=== PATIENT | female | born 1960 ===

== ENCOUNTER 2017-04-09 00:37 | Emergency (ER) | payer MEDICAID ==
[2017-04-09 00:38] VITALS: BMI 28.1
[2017-04-09 00:50] VITALS: PULSE 79; RESP 16; TEMP 98.2; O2SAT 100
[2017-04-09 02:11] LABS: BASO % 0.4 % (0.0-2.0); EOS # 0.1 K/uL (0.0-0.7); EOS % 1.8 % (0.0-4.0); HEMATOCRIT 43.6 % (34.0-47.0); LYMPH % 38.9 % (20.0-40.0); MEAN CORPUSCULAR HEMOGLOBIN 29.2 pg (27.0-31.0); MEAN CORPUSCULAR HGB CONC 33.6 g/dL (33.0-37.0); MEAN PLATELET VOLUME 7.4 fl (7.2-11.7); MONO # 0.4 K/uL (0.0-0.8); MONO % 7.3 % (0.0-10.0); NEUT # 2.7 K/uL (1.8-7.0); NEUT % 51.6 % (50.0-75.0); NRBC % 0.2 % (0.0-0.0); RED CELL DISTRIBUTION WIDTH 13.5 % (11.5-14.5); WHITE BLOOD COUNT 5.2 K/uL (4.8-10.8)
[2017-04-09 02:19] LABS: ALB/GLOB RATIO 1.4 (1.0-2.1); ALKALINE PHOSPHATASE 100 U/L (38-126); ALT/SGPT 52 U/L (9-52); AST/SGOT 34 U/L (14-36); BILIRUBIN,TOTAL 0.5 mg/dl (0.2-1.3); BLOOD UREA NITROGEN 16 mg/dl (7-17); CALCIUM 9.7 mg/dL (8.4-10.2); CARBON DIOXIDE 27 mmol/L (22-30); CHLORIDE 103 mmol/L (98-107); GFR AFRICAN-AMERICAN > 60; GLUCOSE,RANDOM 106 mg/dL (65-105); POTASSIUM 3.9 MMOL/L (3.6-5.0); SODIUM 144 mmol/l (132-148); TOTAL PROTEIN 7.6 G/DL (6.3-8.2)
[2017-04-09 02:56] VITALS: BP 173/92
== END 2017-04-09 03:10 | disposition home or self-care (01) ==
LOC: H.ER 00:37
DX: I10 Essential (primary) hypertension (principal)

== ENCOUNTER 2018-07-10 16:26 | Emergency (ER) | payer MEDICAID, OTHER ==
[2018-07-10 16:26] VITALS: BMI 28.1
[2018-07-10 17:10] VITALS: BP 142/83; PULSE 84; RESP 18; TEMP 99.1; O2SAT 98
--- NOTE | 2018-07-10 19:18 | ED PDOC ---
Lower Extremity Pain/Injury Time Seen by Provider: 07/10/18 18:10 Chief Complaint (Nursing): Lower Extremity Problem/Injury Chief Complaint (Provider): Lower Extremity Problem History Per: Patient History/Exam Limitations: no limitations Onset/Duration Of Symptoms: Days (1x week) Current Symptoms Are (Timing): Still Present Severity: Moderate Additional Complaint(s): 58 year old female with a past medical history of hypertension and hypercho lesterolemia presents to the ED for an evaluation of right ankle pain ongoing for 1x week, associated with intermittent swelling. Patient reports noticing redness to the ankle 3x days ago. Patient reports that secondary to pain, she has had an decrease in ROM and ambulation. Patient reports that the pain is localized, non-radiating. Patient denies taking medications prior to arrival. Otherwise: (-) falls, (-) history of gout, (-) cut to the area, (-) fevers, (-) prolonged immobility, (-) calf pain, (-) shortness of breath, (-) cough, (-) palpitations, (-) previous ankle injury, (-) previous ankle surgery. PMD: [facility] Past Medical History Reviewed: Historical Data, Nursing Documentation, Vital Signs Vital Signs: Last Vital Signs Temp 99.1 F 07/10/18 17:08 Pulse 84 07/10/18 17:08 Resp 18 07/10/18 17:08 BP 142/83 07/10/18 17:08 Pulse Ox 98 07/10/18 17:08 - Medical History PMH: Gastritis, HTN, Hypercholesterolemia Denies: Chronic Kidney Disease - Surgical History Surgical History: Cholecystectomy, Hernia Repair Other surgeries: partial hysterectomy, ovarian cyst removal - Family History Family History: States: Diabetes - Social History Current smoker - smoking cessation education provided: No Alcohol: None Drugs: Denies - Home Medications Home Medications: Ambulatory Orders Medication Instructions Recorded Hydrochlorothiazide [HCTZ] 25 mg PO DAILY 30 Days 04/22/15 Potassium Chloride [K-Dur 20] 20 meq PO DAILY #5 ter 04/22/15 RX: Lisinopril 5 mg PO DAILY #30 tab 04/22/15 RX: Omeprazole 20 mg PO DAILY #0 ecc 04/22/15 RX: Omeprazole 20 mg PO DAILY #20 ecc 03/16/16 Acetaminophen [Acetaminophen 8 650 mg PO Q8 PRN #21 tablet.er 07/10/18 Hour] Meloxicam [Mobic] 15 mg PO DAILY PRN #10 tab 07/10/18 RX: traMADol [Ultram] 50 mg PO Q6 PRN #12 tab 07/10/18 - Allergies Allergies/Adverse Reactions: Allergies Allergy/AdvReac Type Severity Reaction Status Date / Time No Known Allergies Allergy Verified 07/10/18 17:08 Review of Systems ROS Statement: Except As Marked, All Systems Reviewed And Found Negative Constitutional: Negative for: Fever Respiratory: Negative for: Cough, Shortness of Breath Musculoskeletal: Positive for: Foot Pain (right ankle pain with swelling and redness). Negative for: Other (prolonged immobility, calf pain, cuts to right ankle.) Physical Exam - Reviewed Nursing Documentation Reviewed: Yes Vital Signs Reviewed: Yes - Physical Exam Comments: GENERAL APPEARANCE: Patient is awake, alert, oriented x 3, uncomfortable. Patient seen limping in ED. SKIN: Warm, dry; (-) cyanosis. NECK: Supple CHEST AND RESPIRATORY: (-) rales, (-) rhonchi, (-) wheezes; breath sounds equal bilaterally. HEART AND CARDIOVASCULAR: (-) irregularity LOWER EXTREMITY: Ankle: Tenderness to medial and posterior aspect of right ankle with mild edema. (+) erythema and warmth. (+) decreased range of motion secondary to pain. Achilles tendon tender, but intact. (-) Johnson test. (-) calf tenderness. Foot: non-tender. Sensation intact throughout. (+) cracked skin to heel of right foot. CARDIOVASCULAR: (+) pulses NEUROLOGIC: (+) distal sensation LUNGS: clear to auscultation bilaterally, respirations nonlabored. - Laboratory Results Result Diagrams: 07/10/18 19:10 07/10/18 19:10 - ECG O2 Sat by Pulse Oximetry: 98 (RA) Pulse Ox Interpretation: Normal Medical Decision Making Medical Decision Makin:10 Clinical impression: 58 year old female with acute ankle pain, consider cellulit is vs tendonitis vs. gout. Initial plan: * XRay ankle right 3 views * BMP * uric acid * CBC with diff * erythrocyte sedimentation rate * toradol 30 mg IVP * tylenol 325 mg tab 650 mg PO * zofran 4mg ODT as patient reports onset of nausea when nurse drawing labs 1939 Ankle XR: no acute disease as read by Genevieve PA-C BMP reviewed and grossly unremarkable. Uric acid WNL. CBC pending. Consult placed to podiatry. Case discussed with Donita Alvarez, podiatry resident, who is agreeable to evaluation in ED. 2020 Podiatry at bedside. See consult note. CBC reviewed, no leukocytosis or neutrophil shift. ESR elevated at 50. 2050 Per podiatry evaluation, patient to be treated for achilles tendonitis. Patient placed in Tapia dressing and surgical shoe by podiatry. RICE encouraged. On re-evaluation, patient reports improvement of symptoms. On exam, patient remains AAOx3, in no acute distress. Vitals stable. Lab/Diagnostic results d/w the patient in great detail. Diagnosis of achilles tendonitis, acute ankle pain and swelling d/w the patient. Based on history, exam and diagnostic results, plan will be for outpatient follow up with podiatry. Patient instructed to follow-up with pmd / referral provided / the clinic in 1- 2 days without fail. Advised to take medication as prescribed. Return to the emergency room at any time for any new or worsening symptoms. Patient states she fully agrees with and understands discharge instructions. States that she agrees with the plan and disposition. Verbalized and repeated discharge instructions and plan. I have given the patient opportunity to ask any additional questions. Scribe Attestation: Documented byBee Jaimes, acting as a scribe for Bee Pollard. Provider Scribe Attestation: All medical record entries made by the Scribe were at my direction and personally dictated by me. I have reviewed the chart and agree that the record accurately reflects my personal performance of the history, physical exam, medical decision making, and the department course for this patient. I have also personally directed, reviewed, and agree with the discharge instructions and disposition. Disposition - Clinical Impression Clinical Impression: Ankle pain, Achilles tendonitis, Ankle swelling - Patient ED Disposition Is Patient to be Admitted: No Counseled Patient/Family Regarding: Studies Performed, Diagnosis, Need For Followup, Rx Given - Disposition Referrals: Podiatry Clinic [Outside] Jonathan Rose DPM [Medical Doctor] - Disposition: Routine/Home Disposition Time: 21:10 Condition: STABLE Additional Instructions: The emergency medical care you received today was directed at your acute symptoms. If you were prescribed any medication, please fill it and take as directed. It may take several days for your symptoms to resolve. Return to the Emergency Department if your symptoms worsen, do not improve, or if you have any other problems. Please contact your doctor in 2 days for re-evaluation and follow up / or call one of the physicians/clinics you have been referred to that are listed on the Patient Visit Information form that is included in your discharge packet. Bring any paperwork you were given at discharge with you along with any medications you are taking to your follow up visit. Our treatment cannot replace ongoing medical care by a primary care provider (PCP) outside of the emergency department. Prescriptions: Acetaminophen [Acetaminophen 8 Hour] 650 mg PO Q8 PRN #21 tablet.er PRN Reason: Pain, Moderate (4-7) Meloxicam [Mobic] 15 mg PO DAILY PRN #10 tab PRN Reason: Pain, Moderate (4-7) RX: traMADol [Ultram] 50 mg PO Q6 PRN #12 tab PRN Reason: Pain, Severe (8-10) Instructions: Achilles Tendinopathy, Achilles Tendinopathy Exercises, Achilles Tendinitis (ED) Forms: In[employer] (Armenian) Print Language: TELUGU - POA Present On Arrival: None Results - Lab Results Lab Results: 07/10/18 07/10/18 19:10 19:10 WBC 5.3 RBC 4.60 Hgb 13.8 Hct 41.8 MCV 91.0 D MCH 30.0 MCHC 32.9 L RDW 13.2 Plt Count 169 MPV 7.7 Neut % (Auto) 62.2 Lymph % (Auto) 30.0 Gage % (Auto) 6.6 Eos % (Auto) 1.0 Baso % (Auto) 0.2 Neut # (Auto) 3.3 Lymph # (Auto) 1.6 Gage # (Auto) 0.4 Eos # (Auto) 0.1 Baso # (Auto) 0.0 ESR 50 H Sodium 139 Potassium 4.2 Chloride 102 Carbon Dioxide 30 Anion Gap 11 BUN 20 H Creatinine 0.6 L Est GFR ( Amer) > 60 Est GFR (Non-Af Amer) > 60 Random Glucose 111 H Uric Acid 4.5 Calcium 9.7
[2018-07-10 19:39] LABS: BASO % 0.2 % (0.0-2.0); EOS # 0.1 K/uL (0.0-0.7); HEMOGLOBIN 13.8 g/dL (12.0-16.0); LYMPH # 1.6 K/uL (1.0-4.3); MEAN CORPUSCULAR HGB CONC 32.9 g/dL (33.0-37.0); MEAN PLATELET VOLUME 7.7 fl (7.2-11.7); MONO # 0.4 K/uL (0.0-0.8); MONO % 6.6 % (0.0-10.0); NEUT # 3.3 K/uL (1.8-7.0); NEUT % 62.2 % (50.0-75.0); NRBC % 0.2 % (0.0-0.0); RBC 4.6 Mil/uL (3.80-5.20); RED CELL DISTRIBUTION WIDTH 13.2 % (11.5-14.5); WHITE BLOOD COUNT 5.3 K/uL (4.8-10.8)
[2018-07-10 19:40] LABS: BLOOD UREA NITROGEN 20 mg/dl (7-17); CALCIUM 9.7 mg/dL (8.4-10.2); GFR NON-AFRICAN AMERICAN > 60; URIC ACID 4.5 mg/Dl (2.2-7.5)
--- NOTE | 2018-07-10 21:53 | CP.PCM.CON ---
History of Present Illness - History of Present Illness History of Present Illness: Podiatry Consult Note: Dr. Rose 58 year old female patient, with PMHx of HTN and HLD, seen and evaluated for R ankle pain. She states that the pain and swelling started about a week ago and has gotten worse in nature. She denies any trauma to the area however currently cannot weightbear without experiencing pain. At home she has taken Tylenol for the pain however it is not really helping. She denies any other pedal complaints at this time. Denies N/V/F/SOB/CP/Chills. PMHx: As above ALL: NKDA Review of Systems - Review of Systems Review of Systems: As per HPI Past Patient History - Infectious Disease Hx of Infectious Diseases: None - Tetanus Immunizations Tetanus Immunization: Up to Date - Past Social History Alcohol: None Drugs: Denies - CARDIAC Hx Hypercholesterolemia: Yes Hx Hypertension: Yes - PULMONARY Hx Respiratory Disorders: No - NEUROLOGICAL Hx Neurological Disorder: No - HEENT Hx HEENT Problems: No - RENAL Hx Chronic Kidney Disease: No - ENDOCRINE/METABOLIC Hx Endocrine Disorders: No - HEMATOLOGICAL/ONCOLOGICAL Hx Blood Disorders: No - INTEGUMENTARY Hx Dermatological Problems: No - MUSCULOSKELETAL/RHEUMATOLOGICAL Hx Musculoskeletal Disorders: No - GASTROINTESTINAL Hx Gastritis: Yes - GENITOURINARY/GYNECOLOGICAL Hx Genitourinary Disorders: No - PSYCHIATRIC Hx Psychophysiologic Disorder: No Hx Substance Use: No - SURGICAL HISTORY Hx Cholecystectomy: Yes - ANESTHESIA Hx Anesthesia: Yes Meds Home Medications: Home Medication List Medication Instructions Recorded Confirmed Type Acetaminophen [Acetaminophen 8 650 mg PO Q8 PRN #21 tablet.er 07/10/18 Rx Hour] Meloxicam [Mobic] 15 mg PO DAILY PRN #10 tab 07/10/18 Rx traMADol [Ultram] 50 mg PO Q6 PRN #12 tab 07/10/18 Rx Allergies/Adverse Reactions: Allergies Allergy/AdvReac Type Severity Reaction Status Date / Time No Known Allergies Allergy Verified 07/10/18 17:08 Physical Exam - Constitutional Appears: Well, Non-toxic, No Acute Distress - Head Exam Head Exam: ATRAUMATIC, NORMOCEPHALIC - Extremities Exam Extremities exam: Negative for: calf tenderness Additional comments: RLE focused exam: Vascular: DP/PT palpable, CFT < 3 seconds x5, TG warm to warm, pedal hair present, +1 edema appreciated circumfrentially to ankle joint Ortho: Pain with palpation of achilles tendon at the level of the insertion, MMT 4/5 due to patient guarding, no pain with calf compression, negative ma test Neuro: Gross and protective sensation intact Derm: No open lesions, mild erythema appreciated to achilles tendon insertion, significant xerosis appreciated to heel, no drainage, no purulence, no clinical signs of infection appreciated - Neurological Exam Neurological exam: Alert, Oriented x3 - Psychiatric Exam Psychiatric exam: Normal Affect, Normal Mood - Skin Skin Exam: Warm Results - Vital Signs Recent Vital Signs: Last Vital Signs Temp 99.1 F 07/10/18 17:08 Pulse 84 07/10/18 17:08 Resp 18 07/10/18 17:08 BP 142/83 07/10/18 17:08 Pulse Ox 98 07/10/18 21:16 - Labs Result Diagrams: 07/10/18 19:10 07/10/18 19:10 Labs: Laboratory Results - last 24 hr 07/10/18 07/10/18 19:10 19:10 WBC 5.3 RBC 4.60 Hgb 13.8 Hct 41.8 MCV 91.0 D MCH 30.0 MCHC 32.9 L RDW 13.2 Plt Count 169 MPV 7.7 Neut % (Auto) 62.2 Lymph % (Auto) 30.0 [place] % (Auto) 6.6 Eos % (Auto) 1.0 Baso % (Auto) 0.2 Neut # (Auto) 3.3 Lymph # (Auto) 1.6 [place] # (Auto) 0.4 Eos # (Auto) 0.1 Baso # (Auto) 0.0 ESR 50 H Sodium 139 Potassium 4.2 Chloride 102 Carbon Dioxide 30 Anion Gap 11 BUN 20 H Creatinine 0.6 L Est GFR ( Amer) > 60 Est GFR (Non-Af Amer) > 60 Random Glucose 111 H Uric Acid 4.5 Calcium 9.7 Assessment & Plan - Assessment and Plan (Free Text) Assessment: 58 year old female patient, with PMHx of HTN and HLD, seen and evaluated for R achilles tendonitis Plan: Patient seen and evaluated with all questions and concerns addressed Discussed patient in detail with Dr. Rose Chart, labs, vitals reviewed; VSS, WBC 5.3, ESR 50 R ankle x-rays taken; No osseous deformities noted, calcification appreciated at level of achilles insertion (read by me) R ankle dressed in Tapia compression and dispensed surgical shoe Patient instructed on RICE protocol Patient to f/u in Dr. Rose's office/clinic for continued care and potential outpatient imaging to r/o partial achilles tendon tear Thank you for the consult and allowing us to partake in the care of this patient - Date & Time Date: 07/10/18 Time: 21:53
--- NOTE | 2018-07-11 08:05 | RAD ---
Date of service: 07/10/2018 PROCEDURE: Right ankle radiographs. HISTORY: redness and swelling x1wk, poss cellulitis vs gout COMPARISON: None. FINDINGS: BONES: Minimal loose bodies along the medial malleolus likely due to old fracture. JOINTS: Normal. No dislocation. SOFT TISSUES: Distal Achilles calcifications. OTHER FINDINGS: None. IMPRESSION: Minimal loose bodies along the medial malleolus likely due to old fracture.Distal Achilles calcifications.
== END 2018-07-10 21:28 | disposition home or self-care (01) ==
LOC: H.ER 16:26
DX: M76.60 Achilles tendinitis, unspecified leg (principal); M25.571 Pain in right ankle and joints of right foot; M25.471 Effusion, right ankle; E78.00 Pure hypercholesterolemia, unspecified; I10 Essential (primary) hypertension
CPT/HCPCS: 73610; 80048; 84550; 85025; 85651; 96374; 99284; J1885